=== PATIENT | male | born 1965 | race Caucasian/White ===

== ENCOUNTER 2022-07-19 19:01 | Observation (INO) | payer OTHER, BC ==
[~2022-07-19] VITALS: Ht 177.8 cm; Wt 127.0 kg
[~2022-07-19 19:01] MED LIST: CEPH500 PO; HYDACE10B PO; LISI20 PO; METF500 PO; METO100ER PO; PRAV20 PO; Percocet 5-3251 EACH PO; [UNRECOGNIZED DRUG - OTHER]; [UNRECOGNIZED DRUG - REMARK]
[2022-07-19 19:32] LABS: BASOPHILS ABSOLUTE AUTO 0.05 K/mm3 (0.00-0.23); BASOPHILS PERCENT AUTO 1 % (0-2); EOSINOPHILS ABSOLUTE AUTO 0.18 K/mm3 (0.00-0.68); EOSINOPHILS PERCENT AUTO 3 % (0-6); Hemoglobin 15.8 g/dL (13.5-17.5); IMMATURE GRAN ABSOLUTE AUTO 0.01 K/mm3 (0.00-0.10); IMMATURE GRAN PERCENT AUTO 0 % (0-1); LYMPHOCYTES ABSOLUTE AUTO 2.64 K/mm3 (0.84-5.20); LYMPHOCYTES PERCENT AUTO 43 % (21-46); MONOCYTES ABSOLUTE AUTO 0.47 K/mm3 (0.16-1.47); MONOCYTES PERCENT AUTO 8 % (4-13); Mean Corpuscular HGB 30.8 pg (26.0-34.0); Mean Corpuscular HGB Conc 35.1 g/dL (31.5-36.5); Mean Corpuscular Volume 88 fL (80-100); Mean Platelet Volume 9.6 fL (9.1-12.4); NEUTROPHILS ABSOLUTE AUTO 2.86 K/mm3 (1.96-9.15); NEUTROPHILS PERCENT AUTO 46 % (41-73); Platelet Count 223 K/mm3 (150-400); RDW Coefficient Variation 12.5 % (11.7-14.2); RDW Standard Deviation 40.5 fL (35.1-46.3); Red Blood Cell Count 5.13 M/mm3 (4.30-5.90); White Blood Cell Count 6.21 K/mm3 (4.00-11.30)
[2022-07-19 19:48] LABS: Albumin, Blood 3.9 g/dL (3.4-5.0); Albumin/Globulin Ratio 1.2 (0.8-1.8); Bilirubin, Total 0.9 mg/dL (0.1-1.0); Bun/Creatinine Ratio 29.7 (12.0-20.0); Calcium, Blood 9.2 mg/dL (8.5-10.1); Creatinine, Blood 0.94 mg/dL (0.60-1.20); Globulin, Blood 3.3 g/dL (2.2-4.0); Potassium, Blood 3.3 mmol/L (3.5-5.5); Total Protein, Blood 7.2 g/dL (6.4-8.2)
[2022-07-19] MEDS ORDERED: AMLO5 PO (22:40)
[2022-07-19] MEDS ORDERED: BUME1 PO (22:49)
[2022-07-19] MEDS ORDERED: Carvedilol12.5 MG PO (22:50)
[2022-07-19] MEDS ORDERED: ASPI81CH PO (22:50)
[2022-07-19] MEDS ORDERED: ATOR40TA PO (22:50)
[2022-07-19] MEDS ORDERED: CHLO25B PO (22:52)
[2022-07-19] MEDS ORDERED: JARDIANCE25 MG PO (22:52)
[2022-07-19] MEDS ORDERED: ROPI1 PO (22:54)
[2022-07-19] MEDS ORDERED: INSULANI ×2 (22:57→22:59)
[2022-07-19] MEDS ORDERED: NOVOLOG100 UNIT/2 SC (23:00)
--- NOTE | 2022-07-20 04:45 | NUR ---
SUMMARY: PATIENT ADMITTED OVERNIGHT FOR EPISODE OF SYNCOPE. VSS. MED REC COMPLETED. PATIENT AOX4. VSS. TELE IN PLACE WITH [facility]. MD NOTIFIED AND ORDERS TO MONITOR PATIENT FOR ANY CHANGES. ORTHOSTATIC VITALS COMPLETED WITH NO MAJOR CHANGE IN HR OR PRESSURE. NO EPISODES OF SYCOPE OVERNIGHT. CALL LIGHT IN REACH. CPAP WORN WITH 3L O2. PATIENT ON RA WHEN AWAKE. POTASSIUM REPLACED.
[2022-07-20 06:02] LABS: Bun/Creatinine Ratio 33.6 (12.0-20.0); Creatinine, Blood 0.95 mg/dL (0.60-1.20); Potassium, Blood 3.4 mmol/L (3.5-5.5)
[2022-07-20] MEDS ORDERED: LOSA50 PO (08:31)
--- NOTE | 2022-07-20 16:22 | NUR ---
PATIENT IS ALERT AND ORIENTED AND COOPERATIVE WITH CARE. 1PA TO BATHROOM. MAKES HIS NEEDS KNOWN. NO C/O N/V OR LIGHTHEADEDNESS THIS SHIFT. ECHO WAS COMPLETED THIS SHIFT. VISITORS WERE AT THE BEDSIDE PERIODICALLY. ON RA. HR IS 52 BPM. WILL CONTINUE TO MONITOR
--- NOTE | 2022-07-21 04:13 | NUR ---
SHIFT SUMMARY PATIENT IS ALERT AND ORIENTED. PATIENT IS PLEASENT AND COOPERATIVE WITH CARE. PATIENT IS A 1X ASSIST TO BATHROOM. PATIENT HAS NO COMPLAINTS OF DIZZY OR SYNCOPE THIS SHIFT. PATIENT HAS HAD NO COMPLAINTS OF PAIN, NAUSEA, SOB OR VOMITTING. PATIENT IS ON TELE AND HAS BEEN NERY MOST OF SHIFT. BED IN LOCKED AND LOWEST POSITION. CALL LIGHT IN PLACE. WILL MONITOR UNTIL SHIFT CHANGE.
[2022-07-21 06:05] LABS: Bun/Creatinine Ratio 32.4 (12.0-20.0); Calcium, Blood 9.2 mg/dL (8.5-10.1); Creatinine, Blood 0.96 mg/dL (0.60-1.20); Potassium, Blood 4.5 mmol/L (3.5-5.5)
--- NOTE | 2022-07-21 18:28 | NUR ---
PT AAOX4 THIS SHIFT. RN WALKED PT AROUND THE UNIT. HR ONLY INCREASED TO 64 BPM. NO ACUTE EVENTS.
[2022-07-22 06:30] LABS: Bun/Creatinine Ratio 32.3 (12.0-20.0); Creatinine, Blood 0.87 mg/dL (0.60-1.20); Potassium, Blood 3.9 mmol/L (3.5-5.5); Thyroxine (T4) 5.6 ug/dL (4.5-12.1)
--- NOTE | 2022-07-22 07:16 | NUR ---
PATIENT REGISTRATION SPECIALIST SUMMARY: A&Ox4. PLEASANT AND COOPERATIVE WITH CARE. CALLS APPROPRIATELY AND IS ABLE TO COMMUNICATE NEEDS EFFECTIVELY. LABS THIS AM; NO CRITICAL RESULTS RECEIVED. NO ACUTE CONCERNS T/O THE NIGHT. TELE SINUS NERY w/ BBB @ 45-47bpm T/O THE NIGHT WHILE SLEEPING. ANTICIPATE DC HOME IF HR MAINTAINS. REPORT TO ONCOMING RN.
--- NOTE | 2022-07-22 13:14 | NUR ---
DISCHARGE NOTE PT DISCHARAGED TO HOME, HIS SON PICKED HIM UP. IV AND TELE REMOVED. DISCHARGED INFORMATION AND EDUCATION PROVIDED. PERSONAL BELONGING GATHERED AND RETURNED.
== END 2022-07-22 13:14 | disposition home or self-care (01) ==
LOC: ER 19:01 → MEDS 19:02
PROVIDERS: Emergency Medicine; Internal Medicine; Student in an Organized Health Care Education/Training Program; ADMIT Internal Medicine
DX: R55 Syncope and collapse (principal); R00.1 Bradycardia, unspecified; I42.1 Obstructive hypertrophic cardiomyopathy; I25.10 Atherosclerotic heart disease of native coronary artery without angina pectoris; I25.2 Old myocardial infarction; I10 Essential (primary) hypertension; E87.6 Hypokalemia; E03.9 Hypothyroidism, unspecified; E11.9 Type 2 diabetes mellitus without complications; G47.33 Obstructive sleep apnea (adult) (pediatric); Z99.89 Dependence on other enabling machines and devices; Z79.4 Long term (current) use of insulin; Z79.82 Long term (current) use of aspirin; Z79.899 Other long term (current) drug therapy; Z88.8 Allergy status to other drugs, medicaments and biological substances
CPT/HCPCS: 36415; 71046; 80048; 80053; 82947; 83036; 83880; 84436; 84443; 84484; 85025; 93005; 93010; 93246; 93306; 94660; 94762; 96372; 99285-25; A9270; G0378; J1650; J1815; J7030

== ENCOUNTER → 2023-03-15 | Outpatient (CLI) | payer BC ==
[~2023-03-15] MED LIST changes: +AMLO5 PO; +ASPI81CH PO; +ATOR40TA PO; +BUME1 PO; +CHLO25B PO; +Carvedilol12.5 MG PO; +INSULANI; +JARDIANCE25 MG PO; +LOSA50 PO; +NOVOLOG100 UNIT/2 SC; +ROPI1 PO
[2023-03-15 17:58] LABS: Creatinine, Urine Random 10.5 mg/dL (27.00-270.00); Microalb/Creat Ratio UR, Rand 48.286 mg/g (0.000-30.000); Microalbumin, Random Urine 5.07 mg/L (0.000-20.000)
== END ==
LOC: LAB SHORT 16:04 → LAB 16:04
PROVIDERS: Family Medicine
DX: E11.9 Type 2 diabetes mellitus without complications (principal); Z79.4 Long term (current) use of insulin
CPT/HCPCS: 82043; 82570

== ENCOUNTER → 2023-06-10 | Outpatient (CLI) | payer OTHER, BC ==
[2023-06-10 19:58] LABS: Albumin, Blood 4.1 g/dL (3.4-5.0); Bilirubin, Total 0.8 mg/dL (0.1-1.0); Bun/Creatinine Ratio 24.4 (12.0-20.0); Calcium, Blood 9.6 mg/dL (8.5-10.1); Creatinine, Blood 0.9 mg/dL (0.60-1.20); Globulin, Blood 4.2 g/dL (2.2-4.0); Potassium, Blood 3.9 mmol/L (3.5-5.5); Total Protein, Blood 8.3 g/dL (6.4-8.2)
== END | disposition home or self-care (01) ==
LOC: LAB SHORT 18:23
PROVIDERS: Family Medicine
DX: R07.89 Other chest pain (principal)
CPT/HCPCS: 80053; 83690

== ENCOUNTER 2024-04-25 09:26 | Day surgery (SDC) | payer OTHER ==
[~2024-04-25] VITALS: Ht 175.3 cm; Wt 133.0 kg
[2024-04-25] VITALS (9 sets, daily range): BP systolic 124–192; BP diastolic 57–89
[~2024-04-25 09:26] MED LIST changes: +ALBU90OI; +ASPIR 8181 M1 PO; +CARV25 PO; +CYCL10 PO; +GLUCOSE; +LEVSOD25 PO; +METO25 PO; +OZEMPIC2 MG/0.75; +SILD50TA PO; +STIOLTO RESPIMAT4 G1; +TRIMAZOLE85 GM
[2024-04-25] MEDS ORDERED: Lactated Ringer's 1,000 ML IV SCH (09:40)
[2024-04-25] MEDS ORDERED: CeFAZolin Sodium 2,000 MG in NS 100 ML IV SCH (09:40)
[2024-04-25] MEDS ORDERED: CeFAZolin Sodium 3,000 MG in NS 100 ML IV SCH (10:05)
[2024-04-25] MEDS ORDERED: propofoL 20 ML IV ONE (10:41)
[2024-04-25] MEDS ORDERED: Rocuronium Bromide 10 MG/ML 5ML Injection IV ONE (10:41)
[2024-04-25] MEDS ORDERED: Ondansetron HCl 2 MG / ML 2ML Vial ONE (10:41)
[2024-04-25] MEDS ORDERED: Dexamethasone Sod Phos 10 MG/ML 1ML VIAL ONE (10:41)
[2024-04-25] MEDS ORDERED: FentaNYL Citrate 50 MCG/ML 2 ML Injection ONE ×2 (10:42→12:10)
[2024-04-25] MEDS ORDERED: Midazolam HCl 1MG / ML 2ML Vial ONE (10:42)
--- NOTE | 2024-04-25 10:45 | NUR ---
History, Chart, Medications and Allergies reviewed before start of procedure. Patient reports completing Chlorhexadine shower X2 prior to admission to hospital. Patient confirms NPO status and agrees with scheduled surgery. Lungs clear T/O to Auscultation. Pre-Op teaching done. Pt verbalizes understanding.
[2024-04-25] MEDS ORDERED: Bupivacaine 0.5% HCl 5 MG/ML 30MLVIAL ONE (11:18)
[2024-04-25] MEDS ORDERED: Sildenafil Citrate 20 MG Tab PO ONE (11:40)
[2024-04-25] MEDS ORDERED: Etomidate 2MG / ML 10ML Vial ONE (11:42)
[2024-04-25] MEDS ORDERED: ePHEDrine Sulfate 50 MG/ML 1ML Injection ONE (12:27)
[2024-04-25] MEDS ORDERED: Sugammadex Sodium 200 MG/2ML SDV (100 MG/ML) ONE (12:51)
[2024-04-25] MEDS ORDERED: HYDROcodone 5-APAP 325 TAB PO PRN (14:20)
--- NOTE | 2024-04-25 14:35 | NUR ---
PT STATES HE HAS AN APPOINTEMENT WITH APPOINTMENT GARMENT FOLDER NEXT MONTH TO DISCUSS POSSIBLE NEED FOR HOME OXYGEN.
--- NOTE | 2024-04-25 15:02 | NUR ---
Discharge instructions reviewed with patient. Patient verbalizes understanding. Copy given to patient to take home. Dressing c/d/i. Prescription placed in discharge folder. O2 stats low 90's on RA. Able to cough and deep breath to get stats over 93. Pt educated to use incentive spirometer 3 times an hour once discharged.
== END 2024-04-25 15:19 | disposition home or self-care (01) ==
LOC: ORSCMMR 09:26 → ORD 10:30 → ORSCMMR 11:00
PROVIDERS: Surgery
PROC: 0WUF0JZ Supplement Abdominal Wall with Synthetic Substitute, Open Approach (ICD-10-PCS; principal; 2024-04-25 11:00)
DX: K42.0 Umbilical hernia with obstruction, without gangrene (principal); I10 Essential (primary) hypertension; I25.2 Old myocardial infarction; I25.10 Atherosclerotic heart disease of native coronary artery without angina pectoris; E78.5 Hyperlipidemia, unspecified; G47.33 Obstructive sleep apnea (adult) (pediatric); J44.89 Other specified chronic obstructive pulmonary disease; Z87.891 Personal history of nicotine dependence; E11.9 Type 2 diabetes mellitus without complications; E03.9 Hypothyroidism, unspecified; Z86.73 Personal history of transient ischemic attack (TIA), and cerebral infarction without residual deficits; Z80.1 Family history of malignant neoplasm of trachea, bronchus and lung; Z79.4 Long term (current) use of insulin; Z79.84 Long term (current) use of oral hypoglycemic drugs; Z79.899 Other long term (current) drug therapy; Z79.82 Long term (current) use of aspirin; E66.01 Morbid (severe) obesity due to excess calories; Z68.42 Body mass index [BMI] 45.0-49.9, adult
CPT/HCPCS: 82947; A9270; C1781; J0690; J1100; J2250; J2405; J2704; J3010; J7120

== ENCOUNTER 2024-10-26 15:53 | Emergency (ER) | payer OTHER ==
[~2024-10-26] VITALS: Ht 177.8 cm; Wt 136.1 kg
[2024-10-26] MEDS ORDERED: FentaNYL Citrate 50 MCG/ML 2 ML Injection IV ONE (16:25)
[2024-10-26 16:43] LABS: BASOPHILS ABSOLUTE AUTO 0.07 K/mm3 (0.00-0.23); BASOPHILS PERCENT AUTO 1 % (0-2); EOSINOPHILS ABSOLUTE AUTO 0.37 K/mm3 (0.00-0.68); EOSINOPHILS PERCENT AUTO 5 % (0-6); Hematocrit 39.2 % (37.0-53.0); Hemoglobin 13.1 g/dL (13.5-17.5); IMMATURE GRAN ABSOLUTE AUTO 0.02 K/mm3 (0.00-0.10); IMMATURE GRAN PERCENT AUTO 0 % (0-1); LYMPHOCYTES ABSOLUTE AUTO 1.68 K/mm3 (0.84-5.20); LYMPHOCYTES PERCENT AUTO 25 % (21-46); MONOCYTES ABSOLUTE AUTO 0.66 K/mm3 (0.16-1.47); MONOCYTES PERCENT AUTO 10 % (4-13); Mean Corpuscular HGB 30.4 pg (26.0-34.0); Mean Corpuscular HGB Conc 33.4 g/dL (31.5-36.5); Mean Corpuscular Volume 91 fL (80-100); Mean Platelet Volume 9.7 fL (9.1-12.4); NEUTROPHILS ABSOLUTE AUTO 4.02 K/mm3 (1.96-9.15); NEUTROPHILS PERCENT AUTO 59 % (41-73); Platelet Count 244 K/mm3 (150-400); RDW Coefficient Variation 13.6 % (11.7-14.2); RDW Standard Deviation 44.1 fL (35.1-46.3); Red Blood Cell Count 4.31 M/mm3 (4.30-5.90); White Blood Cell Count 6.82 K/mm3 (4.00-11.30)
[2024-10-26 16:54] LABS: Albumin, Blood 3.2 g/dL (3.4-5.0); Bilirubin, Total 0.6 mg/dL (0.1-1.0); Bun/Creatinine Ratio 32.3 (12.0-20.0); Calcium, Blood 8.4 mg/dL (8.5-10.1); Creatinine, Blood 0.87 mg/dL (0.60-1.20); Globulin, Blood 3.3 g/dL (2.2-4.0); Total Protein, Blood 6.5 g/dL (6.4-8.2)
[2024-10-26 16:55] LABS: International Normalized Ratio 1.02; Prothrombin Time Results 10.9 Sec (9.7-11.5)
[2024-10-26] MEDS ORDERED: HYDROmorphone HCl/Pf 1MG SYR IV ONE (17:00)
[2024-10-26 18:23] VITALS: BP 164/64
== END 2024-10-26 18:26 | disposition home or self-care (01) ==
LOC: ER 15:53
PROVIDERS: Student in an Organized Health Care Education/Training Program
DX: S40.811A Abrasion of right upper arm, initial encounter (principal); M25.551 Pain in right hip; M25.511 Pain in right shoulder; M54.2 Cervicalgia; I10 Essential (primary) hypertension; Z88.0 Allergy status to penicillin; E11.9 Type 2 diabetes mellitus without complications; Z79.84 Long term (current) use of oral hypoglycemic drugs; Z79.4 Long term (current) use of insulin; Z79.890 Hormone replacement therapy; Z79.899 Other long term (current) drug therapy; V43.62XA Car passenger injured in collision with other type car in traffic accident, initial encounter
CPT/HCPCS: 71045; 72125; 72192; 73030; 80053; 85025; 85610; J1171; J3010

== ENCOUNTER → 2024-12-31 | Outpatient (CLI) | payer OTHER | LOC: LAB 12:30 → LAB SHORT 12:30 | DX: E03.9 Hypothyroidism, unspecified (principal) | CPT/HCPCS: 84443 ==